=== PATIENT | female | born 1990 | race African-American/Black ===

== ENCOUNTER 2016-08-20 10:12 | Emergency (ER) | payer OTHER ==
[~2016-08-20] VITALS: Ht 165.1 cm; Wt 77.3 kg
[~2016-08-20 10:12] MED LIST: BACTRIM DS 8001 TAB PO; HAIRSKINNAILS PO; LAMISIL1% TOP; NIZORAL SHAMPO120 M1 TP; PROAIR HFA0.09 MG/AC IH; VENTOLIN0.09 MG IH; ZYPREXA2.5 MG PO
[2016-08-20 10:15] VITALS: BP 111/72; PULSE 80; TEMP 98.4
[2016-08-20] MEDS ORDERED: CEPHALEXIN500 M1 PO (10:30)
[2016-08-20] MEDS ORDERED: PROAIR HFA0.09 MG/AC IH (10:30)
== END 2016-08-20 10:40 | disposition home or self-care (01) ==
LOC: COL.ER 10:12
DX: L73.9 Follicular disorder, unspecified (principal)